=== PATIENT | female | born 1950 | race Caucasian/White ===

== ENCOUNTER 2018-04-03 03:13 | Emergency (ER) | payer OTHER ==
[~2018-04-03] VITALS: Ht 157.5 cm; Wt 74.1 kg
[~2018-04-03 03:13] MED LIST: FLAGYL500 MG PO; WELCHOL625 MG
[2018-04-03 04:49] LABS: HEMATOCRIT 38.8 % (36.0-46.0); HEMOGLOBIN 13.1 G/DL (11.9-15.5); MCH 31.2 PG (29.0-34.0); MCHC 33.8 G/DL (30.0-36.0); MCV 92.4 FL (83-99); PLATELET COUNT 160 K/uL (156-360); RBC DIS.WIDTH-CV 13.1 % (11.8-14.6); RBC DIS.WIDTH-SD 44.5 % (39-53); WHITE BLOOD COUNT 4.3 K/uL (4.1-10.2)
[2018-04-03 05:08] LABS: ALBUMIN 3.9 g/dL (3.2-4.8); CHLORIDE 105 mEq/L (99-109); POTASSIUM 3.8 mEq/L (3.7-5.4); SODIUM 140 mEq/L (136-147)
[2018-04-03 05:10] LABS: GLUCOSE 109 mg/dL (70-99)
[2018-04-03 05:11] LABS: TOTAL PROTEIN 6.7 g/dL (6.4-8.3)
[2018-04-03 05:12] LABS: TOTAL BILIRUBIN 0.6 mg/dL (0.0-1.0)
[2018-04-03 05:14] LABS: ALKALINE PHOSPHATASE 111 IU/L (3-129); CREATININE 0.8 mg/dL (0.6-1.3); GFR ESTIMATE (CALCULATED) > 59 mL/min/
[2018-04-03 05:15] LABS: UREA NITROGEN (BUN) 21 mg/dL (9-23)
[2018-04-03 05:16] LABS: AST (GOT) 40 IU/L (2-34)
[2018-04-03 05:17] LABS: ALT (GPT) 42 IU/L (3-49)
[2018-04-03] MEDS ORDERED: NORCO 5/3251 TABLET PO (05:17)
[2018-04-03] MEDS ORDERED: VIBRAMYCIN100 MG PO (05:17)
[2018-04-03 05:42] VITALS: BP 157/84
[2018-04-04 10:08] LABS: LYME DISEASE SEROLOGY SCREEN POSITIVE (NEGATIVE)
== END 2018-04-03 05:43 | disposition home or self-care (01) ==
LOC: EME 03:13
PROVIDERS: Physician Assistant
DX: A26.0 Cutaneous erysipeloid (principal); M54.2 Cervicalgia
CPT/HCPCS: 80053; 85027; 86617 90; 86618; 99281; 99284